=== PATIENT | male | born 1955 | race Caucasian/White ===

== ENCOUNTER 2017-10-26 14:32 | Emergency (ER) | payer OTHER ==
[~2017-10-26] VITALS: Wt 87.4 kg
[2017-10-26] MEDS ORDERED: dm meds (18:24)
--- NOTE | 2017-10-26 18:28 | ERD ---
ER Documentation Chief Complaint Chief Complaint LEFT FOOT PAIN, MILD SWELLING HPI 62-year-old male presents to emergency department for complaints of left second toe redness and swelling that started a month ago, worse today. Patient describes the pain in affected area as sharp pain, 6/10 scale, worse upon touching the area. Patient denies any fever chills. Patient denies any trauma in affected area. Patient a denies limitation of movement of the joint. Patient denies any deformity. Patient has history of diabetes. ROS All systems reviewed and are negative except as per history of present illness. Medications Home Meds Reported Medications [dm meds] Unknown Strength No Conflict Check 10/26/17 Allergies Allergies: Coded Allergies: No Known Allergy (Unverified , 10/26/17) PMhx/Soc Medical and Surgical Hx: pt denies Medical Hx, pt denies Surgical Hx Hx Miscellaneous Medical Probl: Yes (DM) FmHx Family History: diabetes Physical Exam Vitals Vital Signs Date Time Temp Pulse Resp B/P Pulse Ox O2 Delivery O2 Flow Rate FiO2 10/26/17 15:24 97.9 81 17 139/76 100 Physical Exam GENERAL: The patient is well developed and appropriate for usual state of health, in no apparent distress. CHEST: Clear to auscultation bilaterally. There are no rales, wheezes or rhonchi. HEART: Regular rate and rhythm. No murmurs, clicks, rubs or gallops. No S3 or S4. ABDOMEN: Soft, nontender and nondistended. Good bowel sounds. No rebound or guarding. No gross peritonitis. No gross organomegaly or masses. No Euceda sign or McBurney point tenderness. BACK: No midline or flank tenderness. EXTREMITIES: Able to do full range of motion of the left second toe without any restriction, no deformity noted, intact sensation of affected area. Equal pulses bilaterally. There is no peripheral clubbing, cyanosis or edema. No focal swelling or erythema. Full range of motion. Grossly neurovascularly intact. NEURO: Noted redness and swelling on the left second toe. No fluctuance noted. Alert and oriented. Cranial nerves 2-12 intact. Motor strength in all 4 extremities with 5/5 strength. Sensation grossly intact. Normal speech and gait. SKIN: There is no apparent rash or petechia. The skin is warm and dry. HEMATOLOGIC AND LYMPHATIC: There is no evidence of excessive bruising or lymphedema. No gross cervical, axillary, or inguinal lymphadenopathy. Results 24 hrs Current Medications Medications (Trade) Dose Ordered Sig/Moshe Route PRN Reason Start Time Stop Time Status Last Admin Dose Admin Ceftriaxone Sodium (Rocephin) 50 ml @ 100 mls/hr ONCE ONCE IVPB 10/26/17 18:30 10/26/17 18:59 DC 10/26/17 18:39 Dr. Turcios evaluated patient with me, recommended giving patient IV antibiotic for cellulitis, and do foot xrays, recommended to have patient return in 4 days (instructed patient to possible see her on Wednesday. IV rocephin given to patient, pt tolerated procedure well. PROCEDURE: X-ray left foot. CLINICAL INDICATION: Injury to the second toe of the left foot. TECHNIQUE: 3 views left foot. COMPARISON: None FINDINGS: Demineralization limits evaluation of fine osseous detail. Intra-articular fracture at the distal metaphysis of the second proximal phalanx, with possible impaction fractures at the proximal and distal metaphyses. Hallux valgus and bunion. Remaining osseous structures without evident acute fracture. Soft tissue swelling over the second toe of the left foot. IMPRESSION: Intra-articular fracture at the distal metaphysis of the second proximal phalanx , with possible impaction fractures at the proximal and distal metaphyses. RPTAT: [facility] Physician Jyotsna Date Time Electronically viewed and signed by Physician Jyotsna on 10/26/2017 19:10 RS/ CC: OPAL JACOME NP After receiving patients xray report, a laurel tape splint was applied on the patients 2ndtoe to 1st toe. After application of the splint, patient has intact sensation and circulation on distal area of the affected joint. Patient does not complain of numbness or tingling after application of the splint. Patient tolerated procedure well.Orthopedic shoe was given afterwards as well as crutches to avoid weight on affected area, is advised to see orthopedic doctor for further evaluation. Procedures/MDM Medical Decision Making: Patient's pain is most likely consistent with a fracture of affected area. Mild redness noted most likely is consistent with cellulitis. Low suspicion for osteomyelitis.. There is no suspicion for neurovascular compromise. Patient has intact sensation and circulation of the affected extremity. There is low suspicion for septic arthritis. Patient does not have any fever. Radiology exams of the affected area does not show any dislocation. Disposition: Home. Patient is given prescription for ibuprofen for pain, Keflex and Bactrim. Patient was advised to elevate the affected area and apply ice on affected area. Patient was advised that if symptoms are worse, numbness, tingling, high fever, unable to move joint, worsening symptoms, to return to emergency department immediately. Otherwise, patient is advised to follow up with the here in the emergency department in 4 days as per recommendation. Disclaimer: Inadvertent spelling and grammatical errors are likely due to EHR/ dictation software use and do not reflect on the overall quality of patient care. Also, please note that the electronic time recorded on this note does not necessarily reflect the actual time of the patient encounter. Departure Diagnosis: Primary Impression: Toe fracture Encounter type: initial encounter Toe: lesser toe Fracture type: closed Phalanx: unspecified phalanx Fracture alignment: nondisplaced Laterality: left Qualified Code: S92.505A - Closed nondisplaced fracture of phalanx of lesser toe of left foot, unspecified phalanx, initial encounter Additional Impression: Cellulitis Site of cellulitis: extremity Site of cellulitis of extremity: toe Laterality: left Qualified Code: L03.032 - Cellulitis of toe of left foot Condition: Stable Patient Instructions: Cellulitis, Fracture, Toe [Closed] Additional Instructions: Patient is given prescription for ibuprofen for pain, Keflex and Bactrim. Patient was advised to elevate the affected area and apply ice on affected area. Patient was advised that if symptoms are worse, numbness, tingling, high fever, unable to move joint, worsening symptoms, to return to emergency department immediately. Otherwise, patient is advised to follow up with the here in the emergency department in 4 days as per recommendation. OPAL JACOME NP Oct 26, 2017 18:28
[2017-10-26] MEDS ORDERED: CEFTRIAXONE 1 GM/50 ML (PMX) 50 ML IVPB ONE (18:30)
--- NOTE | 2017-10-26 19:10 | RADRPT ---
PROCEDURE: X-ray left foot. CLINICAL INDICATION: Injury to the second toe of the left foot. TECHNIQUE: 3 views left foot. COMPARISON: None FINDINGS: Demineralization limits evaluation of fine osseous detail. Intra-articular fracture at the distal me taphysis of the second proximal phalanx, with possible impaction fractures at the proximal and dista l metaphyses. Hallux valgus and bunion. Remaining osseous structures without evident acute fracture. Soft tissue swelling over the second toe of the left foot. IMPRESSION: Intra-articular fracture at the distal metaphysis of the second proximal phalanx, with possible impa ction fractures at the proximal and distal metaphyses. RPTAT: [facility] Physician Jyotsna Date Time Electronically viewed and signed by Physician Jyotsna on 10/26/2017 19:10 RS/
[2017-10-26] MEDS ORDERED: CEPH-443 PO (19:24)
[2017-10-26] MEDS ORDERED: IBUP-1542 PO (19:24)
[2017-10-26] MEDS ORDERED: SULF1TAB31 PO (19:24)
[2017-10-26 19:59] VITALS: BP 129/76; PULSE 69; RESP 18; TEMP 98.3
== END 2017-10-26 20:00 | disposition home or self-care (01) ==
LOC: FTE 14:32
DX: S92.505A Nondisplaced unspecified fracture of left lesser toe(s), initial encounter for closed fracture (principal); L03.032 Cellulitis of left toe; E11.9 Type 2 diabetes mellitus without complications; X58.XXXA Exposure to other specified factors, initial encounter; Y92.9 Unspecified place or not applicable
CPT/HCPCS: 73630; 96374; J0696; Z7502

== ENCOUNTER 2017-10-31 11:10 | Emergency (ER) | payer OTHER ==
[~2017-10-31] VITALS: Ht 175.3 cm; Wt 86.9 kg
[~2017-10-31 11:10] MED LIST: CEPH-443 PO; IBUP-1542 PO; SULF1TAB31 PO; dm meds
[2017-10-31 11:13] VITALS: Ht 175.3 cm; Wt 86.9 kg
[2017-10-31] MEDS ORDERED: CLINDAMYCIN 300 MG INJ IM ONE (12:00)
--- NOTE | 2017-10-31 12:44 | ERD ---
ER Documentation Chief Complaint Chief Complaint Patient here for wound check left toes HPI 62-year-old male, with history of diabetes, returns to the emergency department for recheck of toe fracture with infection. The patient was seen here in the emergency department 5 days ago and was started on antibiotics, he refers feeling better, denies fevers, chills. No pain. 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 ROS A 12-point review of systems was performed and negative other than presented in the history of present illness. SYSTEMIC symptoms: no fever, chills, no night sweats, no weight loss EYE symptoms: No blurred vision, no eye discharge OTOLARYNGEAL symptoms: No hearing loss. No ear pain, no sore throat CARDIOVASCULAR symptoms: No chest pain or discomfort, no palpitations. PULMONARY symptoms: No dyspnea, no cough, no wheezing. GASTROINTESTINAL symptoms: No abdominal pain, no nausea, no vomiting, no diarrhea MUSCULOSKELETAL symptoms: No arthralgias, no muscle aches. NEUROLOGY symptoms: No confusion, no syncope, no numbness or tingling. SKIN: No rashes Medications Home Meds Active Scripts Sulfamethoxazole/Trimethoprim* (Bactrim Ds* Tablet) 1 Each Tablet, 1 TAB PO BID , #14 TAB Prov:MEREDITH JAMA MD 10/31/17 Cephalexin* (Keflex*) 500 Mg Capsule, 500 MG PO QID for 10 Days, CAP Prov:OPAL JACOME NP 10/26/17 Sulfamethoxazole/Trimethoprim* (Bactrim Ds* Tablet) 1 Each Tablet, 1 TAB PO BID , #20 TAB Prov:OPAL JACOME NP 10/26/17 Ibuprofen* (Motrin*) 600 Mg Tab, 600 MG PO Q6H Y for PAIN AND OR ELEVATED TEMP, #30 TAB Prov:OPAL JACOME NP 10/26/17 Reported Medications [dm meds] Unknown Strength No Conflict Check 10/26/17 Allergies Allergies: Coded Allergies: No Known Allergy (Unverified , 10/26/17) PMhx/Soc History of Surgery: No Anesthesia Reaction: No Hx Neurological Disorder: No Hx Respiratory Disorders: No Hx Cardiac Disorders: No Hx Psychiatric Problems: No Hx Miscellaneous Medical Probl: Yes (DM) Hx Alcohol Use: No Hx Substance Use: No Hx Tobacco Use: Yes (25 YEARS AGO) Physical Exam Vitals Vital Signs Date Time Temp Pulse Resp B/P Pulse Ox O2 Delivery O2 Flow Rate FiO2 10/31/17 11:13 97.8 67 20 156/67 98 Physical Exam Patient is in no acute distress, vital signs stable. Alert and fully oriented. EYES: PERRLA, EOMI, Sclera and conjunctiva appear normal. EARS: Canals clear, tympanic membranes WNL THROAT: Normal oropharynx. NECK: Supple, No lymphadenopathy. Full ROM without pain or tenderness. HEART: RRR, no rubs, murmurs, clicks or gallops. LUNGS: Clear to auscultation. ABDOMEN: Soft, non-tender without masses or hepatosplenomegaly. EXTREMITIES: Left foot: Second toe with mild erythema, warmth and edema. No open wounds. distal capillary refill delayed BACK: Full ROM, no deformity, normal back exam NEURO: Cranial nerves grossly intact, no motor or sensory deficit Results 24 hrs Current Medications Medications (Trade) Dose Ordered Sig/Moshe Route PRN Reason Start Time Stop Time Status Last Admin Dose Admin Clindamycin Phosphate (Cleocin) 600 mg ONCE ONCE IM 10/31/17 12:00 10/31/17 12:01 DC 10/31/17 13:09 Procedures/MDM 62-year-old male, with history of diabetes and left toe fracture, returns to the emergency department for a recheck. Vital signs stable, Physical exam showed left second toe with erythema, warmth and edema. Differential diagnosis include but not limited to: Cellulitis, abscess, fungal infection. Low suspicion for systemic infection. Physical examination and clinical presentation consistent most likely with cellulitis of the left toe. During the ED course the patient remained stable, the patient is requesting an antibiotic injection. The patient received treatment with clindamycin IM . Results and clinical impression discussed with patient who agrees with management. The patient is stable to be treated outpatient and will be discharged home with a Rx for Bactrim for 10 days, some side effects of prescribed medications (headache, rash, nausea, vomiting, diarrhea, drowsiness, habituation, bleeding, hypertension, interactions with other medications) were reviewed. The patient was instructed to follow up with the primary care provider in the next 48h. If symptoms persist, worsen or new symptoms develop, then patient should return to the ED immediately. Instructions explained and given directly by me to the patient in Indonesian with acknowledgment and demonstrated understanding. Disclaimer: Inadvertent spelling and grammatical errors are likely due to EHR/ dictation software use and do not reflect on the overall quality of patient care. Also, please note that the electronic time recorded on this note does not necessarily reflect the actual time of the patient encounter. Departure Diagnosis: Primary Impression: Cellulitis of toe of left foot Additional Impression: Encounter for wound re-check Condition: Stable Patient Instructions: Wound Care Additional Instructions: Muchas ziggy por [facility] para jason servicio. Esperamos que en jason visita a la simone de emergencia jason problema medico haya sido solucionado y que se sienta mucho mejor. Para estar seguros que jason mejoria sigue en proceso, le pedimos el favor de hacer corky reed de seguimiento medico con jason doctor primario en los proximos 2-4 wyatt. Lleve con usted estos documentos y las medicinas recetadas. Si monico sintomas empeoran y no puede judy a jason doctor, por favor regrese a simone de emergencia. En dino que usted no tenga un mdico de atencin primaria: Llame al mdico o clnica comunitaria de referencia que aparece abajo ronda las horas de consultorio para hacer corky reed para que le vean. CLINICAS: [facility] [phone] [facility] [phone] [facility] [phone] [facility] [phone] [facility] [phone] [facility]. [phone] [place] Oct 31, 2017 12:44
[2017-10-31] MEDS ORDERED: SULF1TAB31 PO (13:17)
== END 2017-10-31 13:25 | disposition home or self-care (01) ==
LOC: FTE 11:10
DX: L03.032 Cellulitis of left toe (principal); E11.9 Type 2 diabetes mellitus without complications; Z87.891 Personal history of nicotine dependence
CPT/HCPCS: 96372; Z7502; Z7610